=== PATIENT | female | born 1975 | race Caucasian/White ===

== ENCOUNTER → 2017-09-20 | Outpatient (CLI) | payer OTHER ==
--- NOTE | 2017-09-20 15:23 | EXE ---
[place] [address] STRESS ECHOCARDIOGRAM Name: MIMA CMELROY Room: [facility]#: [id number] Admission: 09/20/17 Attend Phys: Ronny Selby Discharge: Date of : 75 Date of Service: 09/20/17 1523 Report #: [id number] THIS REPORT FOR: //name// APPROVED REPORT Study performed: 09/20/2017 11:07:43 Exam: Stress Echocardiogram Indication: Chest pain Patient Location: Out-Patient Stress Nurse: Toshia Richardson RN Supervising Physician: Marco Javed MD Status: routine Ht: 5 ft 3 in HR: 79 bpm BP: 124/80 mmHg Medical History Cardiac Risk Factors: Tobacco History (Current/Recent) Procedure The patient underwent an Exercise Stress Test using the Seamus Protocol. Blood pressure, heart rate, and EKG were monitored. An Echocardiogram was performed by breeder hen service technician in four stages in quad fashion. At peak stress, four selected images were obtained and placed side by side with resting images for comparison. Stress Test Details Stress Test: Exercise stress testing was performed using a Seamus protocol. HR Resting HR: 79 bpm Max Heart Rate (APMHR): 178 bpm Max HR Achieved: 171 bpm Target HR (85% APMHR): 151 bpm % of APMHR: 96 Recovery HR: 94 bpm HR response to stress: Normal HR response to stress BP Resting BP: 124/80 mmHg Max BP: 189/89 mmHg Recovery BP: 132/85 mmHg ECG Resting ECG: Sinus Rhythm Stress ECG: [place] [address] STRESS ECHOCARDIOGRAM Name: MIMA MCELROY Room: [facility]#: [id number] Admission: 09/20/17 Attend Phys: Ronny Selby Discharge: Date of : 75 Date of Service: 09/20/17 1523 Report #: [id number] Maximum ST Deviation: 0 mm Arrhythmia: None Recovery ECG: Sinus Rhythm Recovery ST Deviation: 0 mm Recovery Arrhythmia: None Clinical Reason for Termination: Completed protocol, Maximal effort Exercise duration: 9 min 29 sec Highest Stage Achieved: Stage 4: 4.2 mph at 16% grade. Exercise capacity: 10.09 METs Pre-Stress Echo The resting Echocardiogram showed normal left ventricular contractility with an estimated Ejection Fraction of about 55-60%. Post-Stress Echo The stress Echocardiogram showed normal left ventricular contractility with an estimated Ejection Fraction of about 65-70%. Conclusion Clinical Response: Non-ischemic Exercise Capacity: Average Stress ECG Response: Non-ischemic Stress Echo Images: Non-ischemic low risk stress echo for future cardiac events Other Information Study Quality: Good <Conclusion> low risk stress echo for future cardiac events <ELECTRONICALLY SIGNED> By: Marco Javed MD, [facility] 09/20/17 1523 1523 1523 Marco Javed MD, [facility] /INF
== END ==
LOC: M.CRD 10:49
DX: R07.89 Other chest pain (principal); R06.09 Other forms of dyspnea; Z72.0 Tobacco use